=== PATIENT | male | born 1995 | race Hispanic/Latino ===

== ENCOUNTER 2021-01-08 20:24 | Inpatient (IN) | payer SELFPAY ==
--- NOTE | 2021-01-08 21:19 | RAD REPORT ---
EXAM DESCRIPTION: CT - Head Brain Wo Cont - 01/08/2021 9:14 pm CLINICAL HISTORY: HEADACHE, fever, vomiting COMPARISON: No comparisons TECHNIQUE: Axial 5 mm thick images of the head were obtained without IV contrast. All CT scans are performed using dose optimization technique as appropriate and may include automated exposure control or mA/KV adjustment according to patient size. FINDINGS: No intracranial hemorrhage, mass, edema or shift of mid-line structures. No acute infarcti on changes seen. No abnormal extra-axial fluid collections. Ventricles are normal. Mastoid air cells and visualized portions of the paranasal sinuses are clear. No acute bony findings. IMPRESSION: Negative non-contrast CT head examination.
[2021-01-08 21:23] LABS: Absolute Lymphocytes (CBC) 0.3 K/uL (0.7-4.9); Basophils % 0.2 % (0-1.3); Hematocrit 33.7 % (39.6-49.0); Lymphocytes % 3.8 % (15.3-44.8); MPV 7.1 fL (7.6-11.3); RBC Red Blood Cell Count 3.51 M/uL (4.33-5.43)
[2021-01-08 21:28] LABS: Protime INR 1.68
[2021-01-08 21:31] LABS: Urine Blood 2+ (Negative); Urine Glucose Negative (Negative); Urine Protein 2+ (Negative)
[2021-01-08] MEDS ORDERED: NA CHLORIDE 0.9% 2,000 ML ONE (21:33)
[2021-01-08 21:46] LABS: ALT/SGPT 32 U/L (12-78); AST/SGOT 13 U/L (15-37); Albumin 3.7 g/dL (3.4-5.0); Alkaline Phosphatase 78 U/L (45-117); Amylase 51 U/L (25-115); BUN Blood Urea Nitrogen 12 mg/dL (7-18); Bicarbonate 24 mmol/L (21-32); Bilirubin Direct 0.1 mg/dL (0-0.2); Bilirubin Total 0.5 mg/dL (0.2-1.0); Creatine Phosphokinase 101 U/L (39-308); Glucose Level 112 mg/dL (74-106); Lipase 75 U/L (73-393); Protein, Total 8.1 g/dL (6.4-8.2); Sodium Level 137 mmol/L (136-145); Troponin (Emerg Dept Use Only) < 0.02 ng/mL (0.0-0.045)
[2021-01-08 21:50] LABS: CKMB Creatine Kinase MB < 1.0 ng/mL (1.0-3.6)
--- NOTE | 2021-01-08 22:01 | RAD REPORT ---
EXAM DESCRIPTION: RAD - Chest Single View - 01/08/2021 9:19 pm CLINICAL HISTORY: FEVER TECHNIQUE: AP portable chest image was obtained 01/08/2021 9:19 pm . FINDINGS: Lungs are clear. Right-side PICC line is in place with the tip in the mid SVC. Heart and v asculature are normal. No measurable pleural effusion and no pneumothorax. No acute bony abnormality seen. No acute aortic findings suspected. IMPRESSION: No acute cardiopulmonary process.
[2021-01-08 22:06] LABS: Urine Bacteria <20 /HPF (NONE SEEN)
[2021-01-08] MEDS ORDERED: NA CHLORIDE 0.9% 100 ML ONE (22:38)
[2021-01-08] MEDS ORDERED: CEFEPIME 1 GM/VIAL ONE (22:38)
[2021-01-08] MEDS ORDERED: POTASSIUM CL SA 10 MEQ TAB PO ONE (23:28)
[2021-01-09] MEDS ORDERED: NA CHLORIDE 0.9% 1,000 ML ONE ×3 (00:13→05:02)
[2021-01-09] MEDS ORDERED: NA CHLORIDE 0.9% 250 ML ONE (00:27)
[2021-01-09] MEDS ORDERED: VANCOMYCIN 1 GM/VIAL ONE (00:27)
[2021-01-09] MEDS ORDERED: ONDANSETRON 4 MG/2 ML VIAL ONE (00:46)
--- NOTE | 2021-01-09 01:15 | EDPHYS ---
Physician Documentation [facility] Name: Loy Garcia Age: 26 yrs Sex: Male : 1995 Arrival Date: 01/08/2021 Time: 20:34 Bed 15 Private MD: ED Physician Nima Torres HPI: 01/08 20:50 This 26 yrs old Male presents to ER via EMS with complaints of Fever. mh7 20:50 The patient reports fever, that was measured at 102.5 degrees Fahrenheit. Onset: The mh7 symptoms/episode began/occurred today. Modifying factors: there are no obvious modifying factors. Associated signs and symptoms: Pertinent positives: headache, nausea, vomiting, Pertinent negatives: abdominal pain, altered mental status, arthralgias, backache, chest pain, chills, cough, diarrhea, pulling at ears, earache, hemoptysis, myalgias, night sweats, runny nose, sinus congestion, sinus drainage, skin rash, shortness of breath, sore throat, swelling. Severity of symptoms: At their worst the symptoms were moderate today, in the emergency department the symptoms have improved moderately, Pain is currently a 0 / 10. 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 He reports having nausea and vomiting x2 earlier today. He states he later felt some mild pain to the middle of his forehead which has resolved. He denies any chest pain, neck pain, abdominal pain, shortness of breath, diarrhea, dizziness, dysuria, numbness/tingling, weakness. He denies any recent travel or sick contacts.. Historical: - Allergies: 20:39 Coconut; bb - Home Meds: 20:39 None [Active]; bb - PMHx: 20:39 Leukemia; bb - PSHx: 20:39 None; bb - Immunization history:: Adult Immunizations up to date, Client reports receiving the 2nd dose of the Covid vaccine. - Social history:: Smoking status: Patient reports the use of cigarette tobacco products, smokes one pack cigarettes per day. Patient uses alcohol, occasionally. Patient/guardian denies using street drugs. ROS: 20:50 Eyes: Negative for injury, pain, redness, and discharge, ENT: Negative for injury, mh7 pain, and discharge, Neck: Negative for injury, pain, and swelling, Cardiovascular: Negative for chest pain, palpitations, and edema, Respiratory: Negative for shortness of breath, cough, wheezing, and pleuritic chest pain. 20:50 Back: Negative for injury and pain, : Negative for injury, bleeding, discharge, and swelling, MS/Extremity: Negative for injury and deformity, Skin: Negative for injury, rash, and discoloration. 20:50 Psych: Negative for depression, anxiety, suicide ideation, homicidal ideation, and hallucinations, Allergy/Immunology: Negative for hives, rash, and allergies, Endocrine: Negative for neck swelling, polydipsia, polyuria, polyphagia, and marked weight changes, Hematologic/Lymphatic: Negative for swollen nodes, abnormal bleeding, and unusual bruising. 20:50 Abdomen/GI: Negative for diarrhea, constipation, abdominal cramps, abdominal distension, anorexia, dysphagia, hematemesis, black/tarry stool, rectal pain, rectal bleeding, bowel incontinence, flatulence. 20:50 Neuro: Negative for altered mental status, dizziness, gait disturbance, hearing loss, loss of consciousness, numbness, seizure activity, speech changes, syncope, near syncope, tingling, tinnitus, tremor, visual changes, weakness. Exam: 20:50 Constitutional: This is a well developed, well nourished patient who is awake, alert, mh7 and in no acute distress. Head/Face: Normocephalic, atraumatic. Eyes: Pupils equal round and reactive to light, extra-ocular motions intact. Lids and lashes normal. Conjunctiva and sclera are non-icteric and not injected. Cornea within normal limits. Periorbital areas with no swelling, redness, or edema. ENT: Nares patent. No nasal discharge, no septal abnormalities noted. Tympanic membranes are normal and external auditory canals are clear. Oropharynx with no redness, swelling, or masses, exudates, or evidence of obstruction, uvula midline. Mucous membranes moist. Neck: Trachea midline, no thyromegaly or masses palpated, and no cervical lymphadenopathy. Supple, full range of motion without nuchal rigidity, or vertebral point tenderness. No Meningismus. Chest/axilla: Normal chest wall appearance and motion. Nontender with no deformity. No lesions are appreciated. 20:50 Respiratory: Lungs have equal breath sounds bilaterally, clear to auscultation and percussion. No rales, rhonchi or wheezes noted. No increased work of breathing, no retractions or nasal flaring. Abdomen/GI: Soft, non-tender, with normal bowel sounds. No distension or tympany. No guarding or rebound. No evidence of tenderness throughout. Back: No spinal tenderness. No costovertebral tenderness. Full range of motion. Skin: Warm, dry with normal turgor. Normal color with no rashes, no lesions, and no evidence of cellulitis. MS/ Extremity: Pulses equal, no cyanosis. Neurovascular intact. Full, normal range of motion. Neuro: Awake and alert, GCS 15, oriented to person, place, time, and situation. Cranial nerves II-XII grossly intact. Motor strength 5/5 in all extremities. Sensory grossly intact. Cerebellar exam normal. Normal gait. Psych: Awake, alert, with orientation to person, place and time. Behavior, mood, and affect are within normal limits. 20:50 Cardiovascular: Rate: tachycardic, Rhythm: regular, Pulses: no pulse deficits are appreciated, Heart sounds: normal, normal S1and S2, Edema: is not appreciated, JVD: is not appreciated. Vital Signs: 20:39 BP 147 / 86; Pulse 125; Resp 16 S; Temp 102.2(O); Pulse Ox 97% on R/A; Weight 124.74 kg bb (R); Height 5 ft. 9 in. (175.26 cm) (R); 21:38 BP 137 / 84; Pulse 115; Resp 21; Pulse Ox 100% on R/A; bb 22:00 BP 133 / 77; Pulse 115; Resp 24 S; Temp 100.4(O); Pulse Ox 98% on R/A; bb 23:00 BP 145 / 91; Pulse 117; Resp 18 S; Pulse Ox 98% on R/A; bb 01/09 01:39 Pulse 135; Temp 104.1(O); la1 02:00 BP 152 / 86; Pulse 128; Resp 25; Temp 102.9; Pulse Ox 95% on R/A; Pain 0/10; fu 02:55 BP 152 / 86; Pulse 120; Resp 14; Temp 100.2; Pulse Ox 95% on R/A; Pain 0/10; fu 01/08 20:39 Body Mass Index 40.61 (124.74 kg, 175.26 cm) bb MDM: 01:12 Differential diagnosis: viral Infection, bacterial infection, URI, bronchitis, 7 pneumonia UTI. Data reviewed: vital signs, nurses notes, lab test result(s), CBC, electrolytes, Flu: negative urinalysis, EKG, radiologic studies, CT scan, plain films. Data interpreted: Pulse oximetry: on room air is 98 %. Interpretation: normal. Counseling: I had a detailed discussion with the patient and/or guardian regarding: the historical points, exam findings, and any diagnostic results supporting the discharge/admit diagnosis, the presence of at least one elevated blood pressure reading (>120/80) during this emergency department visit, lab results, radiology results, the need for further work-up and treatment in the hospital. Response to treatment: the patient's symptoms have mildly improved after treatment. 01:14 Patient medically screened. [facility] 01/08 20:48 Order name: Amylase, Serum [facility] 01/08 20:48 Order name: Basic Metabolic Panel [facility] 01/08 20:48 Order name: Blood Culture Adult (2) [facility] 01/08 20:48 Order name: CBC with Diff [facility] 01/08 20:48 Order name: CPK [facility] 01/08 20:48 Order name: Ckmb; Complete Time: 22:53 [facility] 01/08 20:48 Order name: LFT's; Complete Time: 22:53 [facility] 01/08 20:48 Order name: Lactate; Complete Time: 22:53 [facility] 01/08 20:48 Order name: Lipase; Complete Time: 22:53 [facility] 01/08 20:48 Order name: Procalcitonin; Complete Time: 22:53 [facility] 01/08 20:48 Order name: Protime (+inr); Complete Time: 21:42 [facility] 01/08 20:48 Order name: Ptt, Activated; Complete Time: 21:42 [facility] 01/08 20:48 Order name: Troponin (emerg Dept Use Only); Complete Time: 22:53 [facility] 01/08 20:48 Order name: Urine Microscopic Only; Complete Time: 22:53 [facility] 01/08 20:48 Order name: Chest Single View XRAY; Complete Time: 22:53 [facility] 01/08 20:48 Order name: Amylase; Complete Time: 22:53 [facility] 01/08 20:48 Order name: Basic Metabolic Panel; Complete Time: 22:53 [facility] 01/08 20:48 Order name: Blood Culture [facility] 01/08 20:48 Order name: CBC with Automated Diff; Complete Time: 21:42 [facility] 01/08 20:48 Order name: Creatine Phosphokinase; Complete Time: 22:53 [facility] 01/08 20:49 Order name: Influenza Screen (a \T\ B); Complete Time: 22:53 [facility] 01/08 20:49 Order name: Rapid Strep; Complete Time: 22:53 [facility] 01/08 20:49 Order name: CT Head Brain wo Cont; Complete Time: 21:20 [facility] 01/08 21:30 Order name: Urine Dipstick-Ancillary; Complete Time: 21:42 [facility] 01/08 21:37 Order name: SARS-COV-2 RT PCR; Complete Time: 22:53 [facility] 01/08 21:45 Order name: Glucose, Ancillary Testing; Complete Time: 22:53 [facility] 01/08 22:13 Order name: Throat Culture [facility] 01/08 23:27 Order name: CT Abd/Pelvis - IV Contrast Only [facility] 01/09 01:32 Order name: Blood Culture*: FROM PICC tn1 01/08 20:48 Order name: Accucheck; Complete Time: 21:35 [facility] 01/08 20:48 Order name: Cardiac monitoring; Complete Time: 21:09 [facility] 01/08 20:48 Order name: EKG - Nurse/Tech; Complete Time: 21:25 [facility] 01/08 20:48 Order name: IV Saline Lock - Large Bore; Complete Time: 21:09 [facility] 01/08 20:48 Order name: Labs collected and sent; Complete Time: 21:08 [facility] 01/08 20:48 Order name: O2 Per Protocol; Complete Time: 21:08 [facility] 01/08 20:48 Order name: O2 Sat Monitoring; Complete Time: 21:08 [facility] 01/08 20:48 Order name: Urine Dipstick-Ancillary (obtain specimen); Complete Time: 21:26 [facility] 01/08 23:27 Order name: CT Chest For PE Angio [facility] 01/09 01:32 Order name: Misc. Order: REMOVE PICC, send to lab for Tip culture; Complete Time: 01:50 la1 Administered Medications: 01/08 21:08 Drug: NS 0.9% (30 ml/kg) 30 ml/kg Route: IV; Rate: bolus; Site: left forearm; bb 01/09 00:48 Follow up: IV Status: Completed infusion; IV Intake: 3000ml ; per Dr Torres adminster bb 3000 mLs 01/08 22:23 Drug: Cefepime 1 grams Route: IVPB; Rate: 200 ml/hr; Infused Over: 30 mins; Site: right ld1 antecubital; 22:56 Follow up: IV Status: Completed infusion; IV Intake: 100ml bb 23:13 Drug: Potassium Chloride 40 mEq Route: PO; bb 01/09 01:11 Follow up: Response: No adverse reaction bb 00:00 Drug: vancoMYCIN 1 grams Route: IVPB; Infused Over: 2 hrs; Site: left forearm; bb 03:09 Follow up: Response: No adverse reaction; IV Status: Completed infusion fu 00:21 CANCELLED (Duplicate Order): Zofran (Ondansetron) 4 mg IVP once; over 2 minutes bb 00:28 Drug: Zofran (Ondansetron) 4 mg Route: IVP; Site: left forearm; bb 02:44 Follow up: Response: No adverse reaction fu 01:44 Drug: Ibuprofen 800 mg Route: PO; la1 03:09 Follow up: Response: Temperature is decreased fu Disposition: 04:46 Co-signature as Attending Physician, Nima Torres MD. [facility] Disposition Summary: 01/09/21 01:14 Hospitalization Ordered Hospitalization Status: Inpatient Admission [facility] Provider: Tino Jordan [facility] Location: Telemetry/MedSurg (Inpatient) [facility] Condition: Stable [facility] Problem: new [facility] Symptoms: have improved [facility] Bed/Room Type: Standard [facility] Room Assignment: 208(01/09/21 02:18) Diagnosis - Sepsis, unspecified organism [facility] - Pneumonia [facility] Forms: - Medication Reconciliation Form [facility] - SBAR form [facility] Signatures: Dispatcher [employer] Roxy De Anda RN RN Mikey Bonilla, COWLMAN-C COWLMAN-Cla1 Kaitlynn Sanders RN RN cg Holmes, Maurice, MD MD [facility] Micki Howard RN RN ld1 Ivan Grullon RN fu Corrections: (The following items were deleted from the chart) 10/29 21:37 20:50 CORONAVIRUS+MRJOSEBRZ ordered. EDMS EDMS 01/09 00:21 00:21 Zofran (Ondansetron) 4 mg IVP once; over 2 minutes ordered. guzman bb 02:18 01:14 7
--- NOTE | 2021-01-09 01:15 | ER ---
Nurse's Notes [facility] Name: Loy Garcia Age: 26 yrs Sex: Male : 1995 Arrival Date: 01/08/2021 Time: 20:34 Bed 15 Private MD: Diagnosis: Sepsis, unspecified organism;Pneumonia Presentation: 01/08 20:34 Chief complaint: EMS states: they were toned out with report of pt with fever on bb arrival temp was 102.5 pt is in remission for several months from leukemia. Coronavirus screen: fever, Client presents with at least one sign or symptom that may indicate coronavirus-19. Standard/surgical mask placed on the client. Ebola Screen: No symptoms or risks identified at this time. Initial Sepsis Screen: Does the patient meet any 2 criteria? Temp <36.0*C (96.8*F)) or > 38.3*C (100.9*F). HR > 90 bpm. Yes Does the patient have a suspected source of infection? Yes: Other: unknown. Risk Assessment: Do you want to hurt yourself or someone else? Patient reports no desire to harm self or others. Onset of symptoms was January 08, 2021. 20:34 Method Of Arrival: EMS: [facility] 20:34 Acuity: LILY 2 bb 20:41 Care prior to arrival: Medication(s) given: Normal saline infusion, Tylenol, 1000 mg, bb IV initiated. 20 GA, in the left forearm, Glucose check: 117. Triage Assessment: 20:39 General: Appears in no apparent distress. Behavior is calm, cooperative. Pain: bb Complains of pain in headache. Neuro: Level of Consciousness is awake, alert, obeys commands, Oriented to person, place, time, situation. Cardiovascular: Capillary refill < 3 seconds. Respiratory: Respiratory effort is even, unlabored, Respiratory pattern is regular. GI: Abdomen is round. Derm: Skin is clammy, Skin is normal, Skin temperature is warm. Musculoskeletal: Circulation, motion, and sensation intact. Historical: - Allergies: 20:39 Coconut; bb - Home Meds: 20:39 None [Active]; bb - PMHx: 20:39 Leukemia; bb - PSHx: 20:39 None; bb - Immunization history:: Adult Immunizations up to date, Client reports receiving the 2nd dose of the Covid vaccine. - Social history:: Smoking status: Patient reports the use of cigarette tobacco products, smokes one pack cigarettes per day. Patient uses alcohol, occasionally. Patient/guardian denies using street drugs. Screenin:42 Abuse screen: Denies threats or abuse. Nutritional screening: No deficits noted. bb Tuberculosis screening: No symptoms or risk factors identified. Fall Risk None identified. Assessment: 20:42 Reassessment: No changes from previously documented assessment. Patient is alert, bb oriented x 3, equal unlabored respirations, skin warm/dry/pink. see triage assessment. 20:55 Reassessment: phlebotomy at bedside for lab draw. bb 22:55 Reassessment: Patient is alert, oriented x 3, equal unlabored respirations, skin bb warm/dry/pink. IV site intact, patent, fluids infusing, awaiting diagnostic results. 23:59 Reassessment: Patient is alert, oriented x 3, equal unlabored respirations, skin bb warm/dry/pink. pt to CT scan via stretcher accompanied by radiology tech. 01/09 01:46 Reassessment: Blood culture sample from PICC line obtained and sent to lab, lab staff milad Gomez notified that sample is from PICC line. 01:49 Reassessment: PICC line to right upper arm removed by Operator, tip sent for fu culture. 03:08 Reassessment: Patient and/or family updated on plan of care and expected duration. Pain fu level reassessed. Patient is alert, oriented x 3, equal unlabored respirations, skin warm/dry/pink. Vital Signs: 01/08 20:39 BP 147 / 86; Pulse 125; Resp 16 S; Temp 102.2(O); Pulse Ox 97% on R/A; Weight 124.74 kg bb (R); Height 5 ft. 9 in. (175.26 cm) (R); 21:38 BP 137 / 84; Pulse 115; Resp 21; Pulse Ox 100% on R/A; bb 22:00 BP 133 / 77; Pulse 115; Resp 24 S; Temp 100.4(O); Pulse Ox 98% on R/A; bb 23:00 BP 145 / 91; Pulse 117; Resp 18 S; Pulse Ox 98% on R/A; bb 01/09 01:39 Pulse 135; Temp 104.1(O); la1 02:00 BP 152 / 86; Pulse 128; Resp 25; Temp 102.9; Pulse Ox 95% on R/A; Pain 0/10; fu 02:55 BP 152 / 86; Pulse 120; Resp 14; Temp 100.2; Pulse Ox 95% on R/A; Pain 0/10; fu 01/08 20:39 Body Mass Index 40.61 (124.74 kg, 175.26 cm) ED Course: 01/08 20:34 Patient arrived in ED. bb 20:36 Triage completed. bb 20:38 Nima Torres MD is Attending Physician. 7 20:39 Arm band placed on Patient placed in an exam room, on a stretcher, on pulse oximetry. bb 20:42 Patient has correct armband on for positive identification. Bed in low position. Call bb light in reach. Side rails up X 1. surveillance monitor on. Pulse ox on. NIBP on. 20:42 Maintain EMS IV. Dressing intact. Site clean \T\ dry. Gauge \T\ site: 20 g L FA. bb 21:14 CT Head Brain wo Cont In Process Unspecified. EDMS 21:19 Chest Single View XRAY In Process Unspecified. EDMS 21:25 Influenza Screen (a \T\ B) Sent. bb 21:25 Rapid Strep Sent. bb 21:26 Urine Microscopic Only Sent. bb 22:54 Roxy Alaniz, RN is Primary Nurse. bb 01/09 00:18 CT Abd/Pelvis - IV Contrast Only In Process Unspecified. EDMS 00:19 CT Chest For PE Angio In Process Unspecified. EDMS 01:14 Tino Jordan MD is Hospitalizing Provider. 7 01:50 Amylase, Serum Sent. fu 01:51 Basic Metabolic Panel Sent. fu 01:51 Blood Culture Adult (2) Sent. fu 01:51 CBC with Diff Sent. fu 01:51 CPK Sent. fu 02:43 No provider procedures requiring assistance completed. fu 03:08 Patient admitted, IV remains in place. fu Administered Medications: 01/08 21:08 Drug: NS 0.9% (30 ml/kg) 30 ml/kg Route: IV; Rate: bolus; Site: left forearm; bb 01/09 00:48 Follow up: IV Status: Completed infusion; IV Intake: 3000ml ; per Dr Torres adminster bb 3000 mLs 01/08 22:23 Drug: Cefepime 1 grams Route: IVPB; Rate: 200 ml/hr; Infused Over: 30 mins; Site: right ld1 antecubital; 22:56 Follow up: IV Status: Completed infusion; IV Intake: 100ml bb 23:13 Drug: Potassium Chloride 40 mEq Route: PO; bb 01/09 01:11 Follow up: Response: No adverse reaction bb 00:00 Drug: vancoMYCIN 1 grams Route: IVPB; Infused Over: 2 hrs; Site: left forearm; bb 03:09 Follow up: Response: No adverse reaction; IV Status: Completed infusion fu 00:21 CANCELLED (Duplicate Order): Zofran (Ondansetron) 4 mg IVP once; over 2 minutes bb 00:28 Drug: Zofran (Ondansetron) 4 mg Route: IVP; Site: left forearm; bb 02:44 Follow up: Response: No adverse reaction fu 01:44 Drug: Ibuprofen 800 mg Route: PO; la1 03:09 Follow up: Response: Temperature is decreased fu Intake: 01/08 22:56 IV: 100ml; Total: 100ml. bb 01/09 00:48 IV: 3000ml; Total: 3100ml. Outcome: 01:14 Decision to Hospitalize by Provider. [facility] 03:07 Admitted to Med/surg accompanied by nurse, via wheelchair, room 208, Report called to milad Lindsey RN 03:07 Condition: stable 03:07 Instructed on the need for admit, Demonstrated understanding of instructions. 03:16 Patient left the ED. Signatures: Dispatcher [employer] EDUT Roxy Alaniz RN Mikey Don, LIDAR SCIENTIST-C LIDAR SCIENTIST-Cla1 Ivan Grullon RN RN fu Holmes, Maurice, MD MD 7 Micki Howard RN RN ld1 Corrections: (The following items were deleted from the chart) 01/08 21:37 21:25 CORONAVIRUS+ drawn and sent. guzman EDMS 01/09 00:03 01/08 22:54 BP 133 / 77; Pulse 115bpm; Resp 24bpm; Spontaneous; Pulse Ox 98% RA; Temp bb 100.4F Oral; bb
--- NOTE | 2021-01-09 01:50 | P.HP ---
Certification for Inpatient Patient admitted to: Inpatient With expected LOS: >2 Midnights Patient will require the following post-hospital care: None Practitioner: I am a practitioner with admitting privileges, knowledge of patient current condition, hospital course, and medical plan of care. Services: Services provided to patient in accordance with Admission requirements found in Title 42 Section 412.3 of the Code of Federal Regulations Patient History Date of Service: 01/09/21 Primary Care Provider: None Reason for admission: Sepsis History of Present Illness: 26-year-old male with history of leukemia now in remission for last 8 months presents emergency department for fever. Patient noted to have PICC line to right upper extremity reports that has been in there ever since he was treated with chemotherapy for his leukemia and he never had it removed as he thought he needs to go to [facility] to do so. Patient noted to have no formal dressing to pick line, covered with a T-shirt. Patient reports he has been flushing at home daily. Patient was evaluated in the emergency department labs are significant for white blood cell count 8.3 hemoglobin 11.7 hematocrit 33.7 platelet 115 potassium 3.0 glucose 112 procalcitonin 0.92 lactic acid 0.5 T-max 104.1. CT chest abdomen pelvis with contrast revealed possible left lower lobe pneumonia also suspect central line infection. Blood cultures were obtained including 1 set from PICC line, PICC line was then removed and catheter tip was sent to the lab for culture, will admit for sepsis. - Past Medical/Surgical History -: Leukemiain remission -: None Psychosocial/ Personal History: Lives at home with his family - Family History Family History: Reviewed- Non-Contributory - Social History Smoking Status: Current every day smoker Counseled patient to stop smoking for: less than 10 minutes Smoking therapy provided: No (Patient declined) Alcohol use: Yes CD- Drugs: No Caffeine use: Yes Place of Residence: Home Review of Systems 10-point ROS is otherwise unremarkable General: Fever, Chills, Weakness, Malaise Physical Examination - Physical Exam General: Alert, In no apparent distress, Oriented x3 HEENT: Atraumatic, PERRLA, Mucous membr. moist/pink, EOMI, Sclerae nonicteric Neck: Supple, 2+ carotid pulse no bruit, No LAD, Without JVD or thyroid abnormality Respiratory: Clear to auscultation bilaterally, Normal air movement Cardiovascular: Regular rate/rhythm, Normal S1 S2 Gastrointestinal: Normal bowel sounds, No tenderness Musculoskeletal: No tenderness Integumentary: No rashes Neurological: Normal speech, Normal strength at 5/5 x4 extr, Normal tone, Normal affect - Studies Laboratory Data (last 24 hrs) 01/08/21 21:07: PT 19.4 H, INR 1.68, APTT 34.5 01/08/21 21:07: WBC 8.30, Hgb 11.7 L, Hct 33.7 L, Plt Count 115 L 01/08/21 21:07: Sodium 137, Potassium 3.0 L, BUN 12, Creatinine 0.91, Glucose 112 H, Total Bilirubin 0.5, AST 13 L, ALT 32, Alkaline Phosphatase 78, Amylase 51, Lipase 75 Microbiology Data (last 24 hrs): 01/08/21 21:24 Nasopharnyx Influenza Type A Antigen Screen - Final 01/08/21 21:24 Nasopharnyx Influenza Type B Antigen Screen - Final 01/08/21 21:24 Throat Group A Streptococcus Rapid Screen - Final Assessment and Plan - Plan Assessment: Sepsis without severe sepsis or septic shock likely secondary to CVC infection with possible left lower lobe pneumonia Hypokalemia Plan: Sepsis without severe sepsis or septic shock likely secondary to CVC infection with possible left lower lobe pneumonia: 2 sets of blood cultures obtained peripherally, 1 set obtained from PICC line, PICC line discontinued and catheter tip sent to lab for culture. Patient on broad-spectrum antibiotics with vancomycin/cefepime, infectious disease consulted. Echocardiogram ordered to rule out endocarditis. Continue broad-spectrum antibiotics, IV fluids. Hypokalemia: Potassium protocol in place. DVT PPX: Lovenox full Code status: Discharge Plan: Home Plan to discharge in: Greater than 2 days - Advance Directives Does patient have a Living Will: No Does patient have a Durable POA for Healthcare: No - Code Status/Comfort Care Code Status Assessed: Yes (Full code) Critical Care: No Time Spent Managing Pts Care (In Minutes): 55
[2021-01-09] MEDS ORDERED: IBUPROFEN 400 MG TAB ONE (02:05)
[2021-01-09 03:31] VITALS: BMI 33.2
[2021-01-09] MEDS ORDERED: ONDANSETRON 4 MG/2 ML VIAL IV PRN (03:35)
[2021-01-09] MEDS: NA CHLORIDE 0.9% 1,000 ML IV SCH ×3 (03:35→20:40)
[2021-01-09] MEDS ORDERED: VANCOMYCIN/NS 1 gm 1 GM/250 ML BAG IVPB SCH (03:35)
[2021-01-09 03:47] VITALS: O2SAT 100
[2021-01-09] MEDS ORDERED: VANCOMYCIN 0.75 GM in NA CHLORIDE 0.9% 150 ML IVPB ONE (04:30)
[2021-01-09 05:50] LABS: Absolute Lymphocytes (CBC) 0.3 K/uL (0.7-4.9); Basophils % 0.1 % (0-1.3); Lymphocytes % 5.2 % (15.3-44.8)
[2021-01-09 06:15] LABS: ALT/SGPT 35 U/L (12-78); AST/SGOT 20 U/L (15-37); Albumin 3.4 g/dL (3.4-5.0); Alkaline Phosphatase 69 U/L (45-117); BUN Blood Urea Nitrogen 9 mg/dL (7-18); Bicarbonate 24 mmol/L (21-32); Bilirubin Total 0.5 mg/dL (0.2-1.0); Glucose Level 105 mg/dL (74-106); Magnesium 1.7 mg/dL (1.8-2.4); Potassium 3.5 mmol/L (3.5-5.1); Protein, Total 7.5 g/dL (6.4-8.2); Sodium Level 138 mmol/L (136-145); Thyroid Stimulating Hormone 0.555 uIU/mL (0.360-3.740)
[2021-01-09] MEDS ORDERED: MAGNESIUM SULFATE 1 gm IVPB 1 GM/100 ML BAG IV ONE (09:00)
[2021-01-09] MEDS ORDERED: CEFEPIME 1 GM/VIAL IV SCH (09:00)
[2021-01-09 09:17] LABS: Blood Morphology Comment NOT SEEN (NOT SEEN); Platelet Estimate ADEQ
[2021-01-09] MEDS: CEFEPIME 1 GM/100 ML BAG IV SCH ×2 (09:46→20:38)
[2021-01-09] MEDS: ENOXAPARIN 40 MG/0.4 ML SQ SCH (09:46)
--- NOTE | 2021-01-09 12:14 | P.INFCA ---
Sepsis Focused Assessment - Focused Assessment Complete? Sepsis Focused Assessment Completed?: Yes - Sepsis Screen Result Severe Sepsis: Negative Septic Shock: Negative - Evaluation Current stage of sepsis: Resolved - Vital Signs Reviewed: Yes Temperature: 99.6 F Heart rate: 132 Blood Pressure: 141/79 Respiratory Rate: 21 O2 Sat by Pulse Oximetry: 96 - Examination Date exam was performed: 01/09/21 Time exam was performed: 06:45 Heart: Tachycardia Lungs: Diminished air movement Peripheral pulses: 3+ Normal Peripheral pulse location: Radial, Posterior tibial Capillary refill: <2 Seconds Skin examination: Normal turgor
[2021-01-09] MEDS: VANCOMYCIN 1.75 GM in NA CHLORIDE 0.9% 500 ML IVPB SCH (16:30)
[2021-01-09] MEDS: ACETAMINOPHEN 500 MG TAB PO PRN (17:03)
--- NOTE | 2021-01-09 18:22 | RAD REPORT ---
EXAM DESCRIPTION: CT - Abdomen Pelvis W Contrast - 01/09/2021 6:25 am CLINICAL HISTORY: The patient is 26 years old and is Male; Fever;Nausea / vomiting TECHNIQUE: Axial computed tomographic angiography images of the chest and axial computed tomography images of the abdomen and pelvis with intravenous contrast. This CT exam was performed using one or more of the following dose reduction techniques: automated exposure control, adjustment of the mA and/or kV according to patient size, and/or use of iterative reconstruction technique. Delayed imaging was performed. MIP reconstructed images were created and reviewed. Oblique reformatted images were created and reviewed. DLP: 2263 mGy*cm COMPARISON: None. FINDINGS: CHEST: AORTA: No acute findings. No aortic aneurysm. No dissection. PULMONARY ARTERIES: Limited evaluation due to poor bolus timing. No central pulmonary embolism. GREAT VESSELS OF AORTIC ARCH: No acute findings. No dissection. No arterial occlusion or signif icant stenosis. LUNGS: Left lower lobe opacity measuring approximately 1.7 cm. Right lower lobe nodule measuring 4 mm (series 4 2, image 70). Mild adjacent interlobular septal thickening. PLEURAL SPACE: Unremarkable. No significant effusion. No pneumothorax. HEART: Mild cardiomegaly. No significant pericardial effusion. MEDIASTINUM: Small hiatal hernia. ABDOMEN: LIVER: Unremarkable. No mass. GALLBLADDER AND BILE DUCTS: Unremarkable. No calcified stones. No ductal dilation. PANCREAS: Unremarkable. No ductal dilation. No mass. SPLEEN: Unremarkable. No splenomegaly. ADRENALS: Unremarkable. No mass. KIDNEYS AND URETERS: Bilateral nonspecific perinephric stranding. No hydronephrosis. No solid mass. STOMACH AND BOWEL: Unremarkable. No obstruction. No mucosal thickening. PELVIS: APPENDIX: The appendix is seen and is within normal limits. BLADDER: Unremarkable. No mass. REPRODUCTIVE: Unremarkable as visualized. CHEST, ABDOMEN and PELVIS: INTRAPERITONEAL SPACE: Unremarkable. No significant fluid collection. No free air. BONES/JOINTS: Straightening of the thoracolumbar curvature. No acute fracture. No dislocation. SOFT TISSUES: Fat-containing umbilical hernia. LYMPH NODES: Unremarkable. No enlarged lymph nodes. IMPRESSION: 1. Limited evaluation due to poor bolus timing. No central pulmonary embolism. 2. Left lower lobe opacity measuring approximately 1.7 cm. Finding concerning for infectious proc ess. 3. Right lower lobe nodule measuring 4 mm (series 402, image 70). 4. No acute abdominal or pelvic abnormality. 5. Mild cardiomegaly. Electronically signed by: Rupert Barahona DO 01/09/2021 12:43 AM CDT Due to temporary technical issues with the PACS/Fluency reporting system, reports are being signed by the in house radiologists without review as a courtesy to insure prompt reporting. The interpreting radiologist is fully responsible for the content of the report.
--- NOTE | 2021-01-09 18:25 | RAD REPORT ---
EXAM DESCRIPTION: CT - Chest For Pe Angio - 01/09/2021 6:25 am CLINICAL HISTORY: The patient is 26 years old and is Male; Fever;Nausea / vomiting TECHNIQUE: Axial computed tomographic angiography images of the chest and axial computed tomography images of the abdomen and pelvis with intravenous contrast. This CT exam was performed using one or more of the following dose reduction techniques: automated exposure control, adjustment of the mA and/or kV according to patient size, and/or use of iterative reconstruction TECHNIQUE: Delayed imaging was performed. MIP reconstructed images were created and reviewed. Oblique reformatted images were created and reviewed. DLP: 2263 mGy*cm COMPARISON: None. FINDINGS: CHEST: AORTA: No acute findings. No aortic aneurysm. No dissection. PULMONARY ARTERIES: Limited evaluation due to poor bolus timing. No central pulmonary embolism. GREAT VESSELS OF AORTIC ARCH: No acute findings. No dissection. No arterial occlusion or signif icant stenosis. LUNGS: Left lower lobe opacity measuring approximately 1.7 cm. Right lower lobe nodule measuring 4 mm (series 4 2, image 70). Mild adjacent interlobular septal thickening. PLEURAL SPACE: Unremarkable. No significant effusion. No pneumothorax. HEART: Mild cardiomegaly. No significant pericardial effusion. MEDIASTINUM: Small hiatal hernia. ABDOMEN: LIVER: Unremarkable. No mass. GALLBLADDER AND BILE DUCTS: Unremarkable. No calcified stones. No ductal dilation. PANCREAS: Unremarkable. No ductal dilation. No mass. SPLEEN: Unremarkable. No splenomegaly. ADRENALS: Unremarkable. No mass. KIDNEYS AND URETERS: Bilateral nonspecific perinephric stranding. No hydronephrosis. No solid mass. STOMACH AND BOWEL: Unremarkable. No obstruction. No mucosal thickening. PELVIS: APPENDIX: The appendix is seen and is within normal limits. BLADDER: Unremarkable. No mass. REPRODUCTIVE: Unremarkable as visualized. CHEST, ABDOMEN and PELVIS: INTRAPERITONEAL SPACE: Unremarkable. No significant fluid collection. No free air. BONES/JOINTS: Straightening of the thoracolumbar curvature. No acute fracture. No dislocation. SOFT TISSUES: Fat-containing umbilical hernia. LYMPH NODES: Unremarkable. No enlarged lymph nodes. IMPRESSION: 1. Limited evaluation due to poor bolus timing. No central pulmonary embolism. 2. Left lower lobe opacity measuring approximately 1.7 cm. Finding concerning for infectious proc ess. 3. Right lower lobe nodule measuring 4 mm (series 402, image 70). 4. No acute abdominal or pelvic abnormality. 5. Mild cardiomegaly. Electronically signed by: Rupert Barahona DO 01/09/2021 12:43 AM CDT Due to temporary technical issues with the PACS/Fluency reporting system, reports are being signed by the in house radiologists without review as a courtesy to insure prompt reporting. The interpreting radiologist is fully responsible for the content of the report.
[2021-01-10] MEDS: ACETAMINOPHEN 500 MG TAB PO PRN (00:41)
[2021-01-10] MEDS: VANCOMYCIN 1.75 GM in NA CHLORIDE 0.9% 500 ML IVPB SCH ×3 (04:31→17:00)
--- NOTE | 2021-01-10 06:07 | P.PN ---
Date of Service: 01/10/21 Subjective: No acute events overnight. Patient reports feeling slightly better. Fever curve seems to be improving. Tachycardia improving along with temperature No new complaints, denies cough, shortness of breath, chest pain Blood cultures positive yesterday ROS: 10 point ROS as noted above, otherwise negative Physical exam GEN: Alert, oriented, NAD, appears fatigued HEENT: Normal conjunctiva, sclera anicteric CV: Regular rate and rhythm, no edema Pulm: Nonlabored respiration on room air ABD: Soft, nontender, nondistended MSK: No joint tenderness Integumentary: No rashes Neuro: Normal speech, normal affect Problem List: Sepsis without severe sepsis or septic shock likely secondary to CVC infection with possible left lower lobe pneumonia Hypokalemia Blood cultures obtained peripherally and from PICC line/catheter tip was sent for culture, positive for gram-positive cocci. Continue broad-spectrum antibiotics until further culture results Infectious disease consulted Echocardiogram to be done tomorrow to rule out possible endocarditis Repeat blood cultures this a.m., until negative Tolerating p.o., DC IV fluids Patient without cough, no shortness of breath; suspect source of infection is from his PICC line VTE: Lovenox Code: Full Dispo: Anticipate discharge home, likely 2-3 days Positive blood cultures, need to repeat until negative. Will likely need another PICC line and IV antibiotics Possibility of needing a ROBERTO Time Spent Managing Pts Care (In Minutes): 35
[2021-01-10 06:11] LABS: Absolute Lymphocytes (CBC) 0.5 K/uL (0.7-4.9); Basophils % 0.1 % (0-1.3); Hematocrit 32.3 % (39.6-49.0); Lymphocytes % 12.1 % (15.3-44.8); MPV 7.4 fL (7.6-11.3); RBC Red Blood Cell Count 3.32 M/uL (4.33-5.43)
[2021-01-10 06:32] LABS: ALT/SGPT 38 U/L (12-78); AST/SGOT 20 U/L (15-37); Albumin 3.1 g/dL (3.4-5.0); Alkaline Phosphatase 67 U/L (45-117); BUN Blood Urea Nitrogen 10 mg/dL (7-18); Bicarbonate 24 mmol/L (21-32); Bilirubin Total 0.4 mg/dL (0.2-1.0); Glucose Level 91 mg/dL (74-106); Magnesium 2.1 mg/dL (1.8-2.4); Potassium 3.4 mmol/L (3.5-5.1); Protein, Total 7.4 g/dL (6.4-8.2); Sodium Level 139 mmol/L (136-145)
[2021-01-10] MEDS ORDERED: POTASSIUM CL SA 10 MEQ TAB PO ONE (09:00)
[2021-01-10] MEDS: CEFEPIME 1 GM/100 ML BAG IV SCH ×2 (10:01→20:34)
[2021-01-10] MEDS: ENOXAPARIN 40 MG/0.4 ML SQ SCH (10:02)
[2021-01-10] MEDS: NA CHLORIDE 0.9% 1,000 ML IV SCH (10:03)
[2021-01-10 15:26] LABS: Potassium 3.6 mmol/L (3.5-5.1)
[2021-01-11] MEDS ORDERED: lisinopriL 10 MG TAB PO ONE (00:46)
[2021-01-11] MEDS: VANCOMYCIN 1.75 GM in NA CHLORIDE 0.9% 500 ML IVPB SCH ×2 (01:46→09:58)
[2021-01-11 04:29] LABS: Absolute Lymphocytes (CBC) 0.6 K/uL (0.7-4.9); Basophils % 0.2 % (0-1.3); Hematocrit 31.2 % (39.6-49.0); MPV 7.2 fL (7.6-11.3); RBC Red Blood Cell Count 3.27 M/uL (4.33-5.43)
[2021-01-11 04:52] LABS: ALT/SGPT 47 U/L (12-78); AST/SGOT 25 U/L (15-37); Albumin 3.3 g/dL (3.4-5.0); Alkaline Phosphatase 67 U/L (45-117); BUN Blood Urea Nitrogen 11 mg/dL (7-18); Bicarbonate 26 mmol/L (21-32); Bilirubin Total 0.5 mg/dL (0.2-1.0); Glucose Level 90 mg/dL (74-106); Magnesium 2.2 mg/dL (1.8-2.4); Potassium 3.4 mmol/L (3.5-5.1); Protein, Total 7.6 g/dL (6.4-8.2); Sodium Level 140 mmol/L (136-145)
--- NOTE | 2021-01-11 06:10 | P.PN ---
Date of Service: 01/11/21 Subjective: No acute events, feeling better today Afebrile, cultures pending No new complaints ROS: 10 point ROS as noted above, otherwise negative Physical exam GEN: Alert, oriented, NAD HEENT: Normal conjunctiva, sclera anicteric CV: Regular rate and rhythm, no edema Pulm: Nonlabored respiration on room air ABD: Soft, nontender, nondistended Integumentary: No rashes Neuro: Normal speech, normal affect Problem List: Sepsis without severe sepsis or septic shock likely secondary to CVC infection with possible left lower lobe pneumonia Hypokalemia Blood cultures obtained peripherally and from PICC line/catheter tip was sent for culture, positive for gram-positive cocci. Continue broad-spectrum antibiotics until further culture results Infectious disease consulted Echocardiogram to be done today to rule out possible endocarditis Repeat blood cultures, until negative Tolerating p.o., DC'd IV fluids Patient without cough, no shortness of breath; suspect source of infection is from his PICC line VTE: Lovenox Code: Full Dispo: Anticipate discharge home, likely 2-3 days Positive blood cultures, need to repeat until negative. Will likely need another PICC line and IV antibiotics Possibility of needing a ROBERTO Time Spent Managing Pts Care (In Minutes): 35
[2021-01-11] MEDS: CEFEPIME 1 GM/100 ML BAG IV SCH (09:58)
[2021-01-11] MEDS: ENOXAPARIN 40 MG/0.4 ML SQ SCH (09:59)
[2021-01-11] MEDS: KCL 20 MEQ/100 mL IVPB 20 MEQ/100 ML BAG IV SCH ×2 (09:59→15:53)
--- NOTE | 2021-01-11 11:14 | P.CNS ---
Date of Consult: 01/11/21 Primary Care Provider: None Chief Complaint: Sepsis History of Present Illness: The patient is a 26-year-old male with a past medical history of leukemia now in remission for the last 8 months who presented to the emergency department due to fever and nausea. Patient states that he took his temperature at home and was recorded at 107.0 F. in the ED patient had a T-max of 104.1 F. in the emergency department patient was noted have the PICC line to his right upper extremity which was covered with a T-shirt. Patient states that he had the PICC line placed several months ago when he was treated with chemotherapy for his leukemia. Patient did not have the PICC line removed after completion of chemotherapy, unknown why. In the emergent department labs were significant for WBC of 8.3, hemoglobin 11.4, hematocrit 33.4, procalcitonin 0.92, lactic acid 0.5. To sets of blood cultures were obtained, 1 from PICC line. PICC line was subsequently removed with catheter tip sent to lab for culture. Patient was empirically placed on vancomycin and cefepime. Blood cultures growing methicillin-susceptible Staphylococcus aureus, catheter tip growing Staphylococcus aureus and Serratia. Antibiotics de escalated to IV cefazolin an oral Levaquin. Patient currently denies nausea/vomiting/diarrhea/shortness of breathe/chest pain. Allergies coconut Allergy (Severe, Verified 01/09/21 03:32) Hives Home Medications: NK [No Home Meds] 01/09/21 - Past Medical/Surgical History Diabetic: No -: Leukemiain remission -: None Psychosocial/ Personal History: Lives at home with his family - Social History Smoking Status: Current every day smoker Alcohol use: No CD- Drugs: No Caffeine use: Yes Place of Residence: Home Review of Systems 10-point ROS is otherwise unremarkable Physical Examination Temp Pulse Resp BP Pulse Ox 97.2 F 65 17 153/92 H 98 01/11/21 08:00 01/11/21 08:00 01/11/21 08:00 01/11/21 08:00 01/11/21 08:00 General: Alert, In no apparent distress, Oriented x3, Obese HEENT: Atraumatic, Normocephalic Neck: Supple, 2+ carotid pulse no bruit Respiratory: Clear to auscultation bilaterally, Normal air movement Cardiovascular: No edema, Normal pulses, Regular rate/rhythm Capillary refill: <2 Seconds Gastrointestinal: Normal bowel sounds, Soft and benign Musculoskeletal: No clubbing, No swelling, No contractures Integumentary: No rashes, No breakdown, No significant lesion Conclusions/Impression: Antibiotics: Cephazolin Start: 01/11 Indication: Methicillin-susceptible bacteremia Levaquin Start: 01/11 Indication: Catheter tip growing Serratia Assessment/plan Sepsis secondary to infected right PICC line Infected line removed on 01/09. Blood cultures obtained on 01/08 growing methicillin-susceptible Staphylococcus aureus. Catheter tip growing methicillin-susceptible Staphylococcus aureus and Serratia. Antibiotics adjusted based on the susceptibility panel, IV cefazolin and oral Levaquin started. Repeat blood cultures taken on 01/10 show no growth @24hr. Patient will need 2 weeks of IV cefazolin following a negative blood culture report and 1 week of oral Levaquin. Transthoracic echocardiogram pending. 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 Recommend continuing to monitor. Sepsis likely contributing to her pancytopenia. -medical management per primary team -continue to monitor CBC and BMP -continue to monitor for signs of infection Plan of care discussed with Dr. Christopher Thank you for consultation.
[2021-01-11] MEDS: CEFAZOLIN 2 GM in NA CHLORIDE 0.9% 100 ML IVPB SCH (17:00)
[2021-01-12] MEDS: CEFAZOLIN 2 GM in NA CHLORIDE 0.9% 100 ML IVPB SCH ×3 (00:09→17:00)
[2021-01-12 05:43] LABS: Absolute Lymphocytes (CBC) 0.6 K/uL (0.7-4.9); Basophils % 0.2 % (0-1.3); Hematocrit 31.9 % (39.6-49.0); Lymphocytes % 18.2 % (15.3-44.8); MPV 7.8 fL (7.6-11.3); RBC Red Blood Cell Count 3.33 M/uL (4.33-5.43)
[2021-01-12 06:07] LABS: ALT/SGPT 47 U/L (12-78); AST/SGOT 20 U/L (15-37); Albumin 3.2 g/dL (3.4-5.0); Alkaline Phosphatase 72 U/L (45-117); BUN Blood Urea Nitrogen 12 mg/dL (7-18); Bicarbonate 27 mmol/L (21-32); Bilirubin Total 0.4 mg/dL (0.2-1.0); Glucose Level 90 mg/dL (74-106); Magnesium 2.1 mg/dL (1.8-2.4); Potassium 3.5 mmol/L (3.5-5.1); Protein, Total 7.7 g/dL (6.4-8.2); Sodium Level 140 mmol/L (136-145)
[2021-01-12] MEDS ORDERED: lisinopriL 10 MG TAB PO SCH (09:00)
[2021-01-12] MEDS: ENOXAPARIN 40 MG/0.4 ML SQ SCH (09:15)
--- NOTE | 2021-01-12 10:48 | P.PN ---
Subjective Date of Service: 01/12/21 Primary Care Provider: None Chief Complaint: Sepsis Patient seen and examined at bedside, repeat blood cultures obtained on 01/10 still lowering gram-positive bacteria. Antibiotics transitioned yesterday. Review of Systems 10-point ROS is otherwise unremarkable Physical Examination - Vital Signs Temperature: 97 F Blood Pressure: 154/89 Pulse: 74 Respirations: 14 Pulse Ox (%): 99 - Studies Laboratory Last Values WBC 8.30 K/uL (4.3-10.9) 01/08/21 21:07 RBC 3.51 M/uL (4.33-5.43) L 01/08/21 21:07 Hgb 11.7 g/dL (13.6-17.9) L 01/08/21 21:07 Hct 33.7 % (39.6-49.0) L 01/08/21 21:07 MCV 96.0 fL (80-100) 01/08/21 21:07 MCH 33.2 pg (27.0-35.0) 01/08/21 21:07 MCHC 34.6 g/dL (32.0-36.0) 01/08/21 21:07 RDW 17.0 % (12.1-15.2) H 01/08/21 21:07 Plt Count 115 K/uL (152-406) L 01/08/21 21:07 MPV 7.1 fL (7.6-11.3) L 01/08/21 21:07 Neutrophils % 90.6 % (41.7-73.7) H 01/08/21 21:07 Lymphocytes % 3.8 % (15.3-44.8) L 01/08/21 21:07 Monocytes % 5.1 % (3.3-12.3) 01/08/21 21:07 Eosinophils % 0.3 % (0-4.4) 01/08/21 21:07 Basophils % 0.2 % (0-1.3) 01/08/21 21:07 Absolute Neutrophils 7.5 K/uL (1.8-8.0) 01/08/21 21:07 Absolute Lymphocytes 0.3 K/uL (0.7-4.9) L 01/08/21 21:07 Absolute Monocytes 0.4 K/uL (0.1-1.3) 10/29/21 21:07 Absolute Eosinophils 0.0 K/uL (0-0.5) 01/08/21 21:07 Absolute Basophils 0.0 K/uL (0-0.5) 01/08/21 21:07 PT 19.4 SECONDS (9.5-12.5) H 01/08/21 21:07 INR 1.68 01/08/21 21:07 APTT 34.5 SECONDS (24.3-36.9) 01/08/21 21:07 Sodium 137 mmol/L (136-145) 01/08/21 21:07 Potassium 3.0 mmol/L (3.5-5.1) L 01/08/21 21:07 Chloride 104 mmol/L (98-107) 01/08/21 21:07 Carbon Dioxide 24 mmol/L (21-32) 01/08/21 21:07 BUN 12 mg/dL (7-18) 01/08/21 21:07 Creatinine 0.91 mg/dL (0.55-1.3) 01/08/21 21:07 Estimated GFR > 90 mL/min (=/>90) 01/08/21 21:07 Glucose 112 mg/dL (74-106) H 01/08/21 21:07 POC Glucose 104 mg/dL (65-120) 01/08/21 21:34 Lactic Acid 0.5 mmol/L (0.4-2.0) 01/08/21 21:07 Calcium 8.6 mg/dL (8.5-10.1) 01/08/21 21:07 Total Bilirubin 0.5 mg/dL (0.2-1.0) 01/08/21 21:07 Direct Bilirubin 0.1 mg/dL (0-0.2) 01/08/21 21:07 AST 13 U/L (15-37) L 01/08/21 21:07 ALT 32 U/L (12-78) 01/08/21 21:07 Alkaline Phosphatase 78 U/L (45-117) 01/08/21 21:07 Creatine Kinase 101 U/L (39-308) 01/08/21 21:07 CK-MB (CK-2) < 1.0 ng/mL (1.0-3.6) L 01/08/21 21:07 Rapid Troponin I < 0.02 ng/mL (0.0-0.045) 01/08/21 21:07 Serum Total Protein 8.1 g/dL (6.4-8.2) 01/08/21 21:07 Albumin 3.7 g/dL (3.4-5.0) 01/08/21 21:07 Globulin 4.4 g/dL (2.3-3.5) H 01/08/21 21:07 Albumin/Globulin Ratio 0.8 (1.1-1.8) L 01/08/21 21:07 Amylase 51 U/L (25-115) 01/08/21 21:07 Lipase 75 U/L (73-393) 01/08/21 21:07 Procalcitonin 0.92 ng/mL (<0.050) H 01/08/21 21:07 Urine pH 7.0 (5.0-7.0) 01/08/21 21:28 Ur Specific [place] 1.020 (1.005-1.030) 01/08/21 21:28 Glucose (UA)(Auto) Negative (Negative) 01/08/21 21:28 Urine Ketones Negative (Negative) 01/08/21 21:28 Urine Blood 2+ (Negative) H 01/08/21 21:28 Urine Nitrite Negative (Negative) 01/08/21 21:28 Ur Leukocyte Esterase Negative (Negative) 01/08/21 21:28 Urine RBC 5-10 /HPF (NONE SEEN) H 01/08/21 21:24 Urine WBC <5 /HPF (<5) 01/08/21 21:24 Ur Squamous Epith Cells <5 /HPF (NONE SEEN) 01/08/21 21:24 Urine Bacteria <20 /HPF (NONE SEEN) 01/08/21 21:24 Urine Culture Reflexed Not needed 01/08/21 21:24 Urine Total Protein 2+ (Negative) H 01/08/21 21:28 SARS-CoV-2 Rap RNA(RT-PCR) Negative (NEGATIVE) 01/08/21 21:24 Microbiology Data (last 24 hrs): 01/09/21 01:40 Catheter Tip - Other Culture & Sensitivity - Final Serratia Marcescens Staph Aureus 01/08/21 21:24 Throat Culture & Sensitivity - Final NORMAL UPPER RESPIRATORY ELIAS GROWN. 01/08/21 21:01 Blood - Blood Aerobic Blood Culture - Final Staph Aureus 01/08/21 21:01 Blood - Blood Blood Culture Gram Stain - Final 01/08/21 21:01 Blood - Blood Anaerobic Blood Culture - Final 01/08/21 21:07 Blood - Blood Aerobic Blood Culture - Final Staph Aureus 01/08/21 21:07 Blood - Blood Blood Culture Gram Stain - Final 01/08/21 21:07 Blood - Blood Anaerobic Blood Culture - Final 01/09/21 01:39 Blood - Blood Aerobic Blood Culture - Final Staph Aureus 01/09/21 01:39 Blood - Blood Blood Culture Gram Stain - Final 01/09/21 01:39 Blood - Blood Anaerobic Blood Culture - Final Staph Aureus 01/09/21 01:39 Blood - Blood Gram Stain - Final Assessment And Plan - Plan Physical exam: General: Alert, In no apparent distress, Oriented x3, Obese HEENT: Atraumatic, Normocephalic Neck: Supple, 2+ carotid pulse no bruit Respiratory: Clear to auscultation bilaterally, Normal air movement Cardiovascular: No edema, Normal pulses, Regular rate/rhythm Capillary refill: <2 Seconds Gastrointestinal: Normal bowel sounds, Soft and benign Musculoskeletal: No clubbing, No swelling, No contractures Integumentary: No rashes, No breakdown, No significant lesion Conclusions/Impression: Antibiotics: Cephazolin Start: 01/11 Indication: Methicillin-susceptible bacteremia Levaquin Start: 01/11 Indication: Catheter tip growing Serratia Assessment/plan Sepsis secondary to infected right PICC line Infected line removed on 01/09. Blood cultures obtained on 01/08 growing methicillin-susceptible Staphylococcus aureus. Catheter tip growing methicillin-susceptible Staphylococcus aureus and Serratia. Antibiotics adj usted based on the susceptibility panel, IV cefazolin and oral Levaquin started. Repeat blood cultures taken on 01/10 growing gram-positive cocci. Additional repeat ordered on 01/12. Patient will need 2 weeks of IV cefazolin following a negative blood culture report and 1 week of oral Levaquin. Transthoracic echocardiogram pending. Due to low diagnostic threshold recommend obtaining a transesophageal echocardiogram Left lower lobe [place]/right lower lobe nodule Left lower lobe lipase 80 concerning for pneumonia however patient is asymptomatic at this time. Of note patient has an extensive past medical history of smoking, states he has smoked 1 pack a day since he was 14. Patient is on oral Levaquin, if it is an infectious process oral Levaquin will cover. Due to right lower lobe nodule recommend a repeat follow-up imaging and follow up with pulmonology. 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 Recommend continuing to monitor. Sepsis likely contributing to her pancytopenia. -medical management per primary team -continue to monitor CBC and BMP -continue to monitor for signs of infection Plan of care discussed with Dr. Christopher Thank you for consultation.
[2021-01-12] MEDS ORDERED: levoFLOXacin 750 MG TAB PO SCH (12:00)
--- NOTE | 2021-01-12 12:42 | ECHO ---
HEIGHT: 5 ft 9 in WEIGHT: 225 lb 0 oz DATE OF STUDY: 01/11/[address]: Mikey Escoto NP 2-DIMENSIONAL: YES M.MODE: YES DOPPLER: YES COLOR FLOW: YES TDS: PORTABLE: DEFINITY: BUBBLE STUDY: DIAGNOSIS: RULE OUT ENDOCARDITIS CARDIAC HISTORY: CATHERIZATION: NO SURGERY: NO PROSTHETIC VALVE: NO PACEMAKER: NO MEASUREMENTS (cm) DIASTOLIC (NORMALS) SYSTOLIC (NORMALS) IVSd 1.1 (0.6-1.2) LA Diam 3.4 (1.9-4.0) LVEF 52% LVIDd 4.7 (3.5-5.7) LVIDs 3.4 (2.0-3.5) %FS 27% LVPWd 1.1 (0.6-1.2) Ao Diam 3.0 (2.0-3.7) 2 DIMENSIONAL ASSESSMENT: RIGHT ATRIUM: NORMAL LEFT ATRIUM: NORMAL RIGHT VENTRICLE: NORMAL LEFT VENTRICLE: NORMAL TRICUSPID VALVE: NORMAL MITRAL VALVE: NORMAL PULMONIC VALVE: NORMAL AORTIC VALVE: NORMAL PERICARDIAL EFFUSION: NONE AORTIC ROOT: NORMAL LEFT VENTRICULAR WALL MOTION: NORMAL DOPPLER/COLOR FLOW: MILD TRICUSPID REGURGITATION COMMENTS: MILD TRICUSPID REGURGITATION. NORMAL LEFT VENTRICULAR SIZE AND FUNCTION. NO VEGETATION. NO EFFUSION. TECHNOLOGIST: GREY GOULD
--- NOTE | 2021-01-12 15:56 | P.PN ---
Subjective Date of Service: 01/12/21 Primary Care Provider: None Chief Complaint: Sepsis Patient has no new complain. No fever for several days. Most recent blood culture growing Gram positive Cocci. Multiple blood cultures grew MSSA. Physical Examination - Vital Signs Temperature: 97.2 F Blood Pressure: 138/74 Pulse: 70 Respirations: 16 Pulse Ox (%): 99 - Physical Exam General: Alert, In no apparent distress, Oriented x3 HEENT: Normocephalic, Mucous membr. moist/pink Neck: JVD not distended Respiratory: Clear to auscultation bilaterally, Normal air movement Cardiovascular: No edema, Regular rate/rhythm, Normal S1 S2, No murmurs Capillary refill: <2 Seconds Gastrointestinal: Normal bowel sounds, Soft and benign, Non-distended, No t enderness Musculoskeletal: No swelling, No tenderness Integumentary: No rashes, No cyanosis Neurological: Normal speech, Normal strength at 5/5 x4 extr Assessment And Plan - Plan MSSA bacteremia/sepsis Hypokalemia History of leukemia. Blood cultures obtained peripherally and from PICC line/catheter tip: positive for MSSA Infectious disease is following. Status post vancomycin, Levaquin and cefepime. Antibiotics scaled down to IV cefazolin. Transthoracic echocardiogram: Tricuspid regurgitation. No vegetation found. Repeat blood cultures (01/10): Coagulase positive Staph Tolerating p.o., DC'd IV fluids Given serial blood culture growing MSSA despite antibiotics, endocarditis highly suspected. [facility] contacted via transfer center for transfer ROBERTO. I spoke to trolley collector and hospitalist well accepted patient for transfer. VTE: Lovenox Code: Full
--- NOTE | 2021-01-12 16:05 | P.DS ---
Admission Date: 01/09/21 Discharge Date: 01/12/21 Primary Care Provider: None Disposition: TRANSFER TO [facility] Discharge Condition: FAIR Reason for Admission: Sepsis Brief History of Present Illness: 26-year-old male with history of leukemia now in remission for last 8 months presented to the emergency department for fever. Patient noted to have PICC line to right upper extremity reports that has been in there ever since he was treated with chemotherapy for his leukemia and he never had it removed as he thought he needs to go to [facility] to do so. Patient noted to have no formal dressing to pick line, covered with a T-shirt. Patient reports he has been flushing at home daily. Patient was evaluated in the emergency department labs are significant for white blood cell count 8.3 hemoglobin 11.7 hematocrit 33.7 platelet 115 potassium 3.0 glucose 112 procalcitonin 0.92 lactic acid 0.5 T-max 104.1. CT chest abdomen pelvis with contrast revealed possible left lower lobe pneumonia also suspect central line infection. Blood cultures were obtained including 1 set from PICC line, PICC line was then removed and catheter tip was sent to the lab for culture. Patient admitted for further management. Hospital Course: MSSA bacteremia/sepsis Hypokalemia History of leukemia. Blood cultures obtained peripherally and from PICC line/catheter tip: positive for MSSA Infectious disease salt and managed antibiotics. Status post vancomycin, Levaquin and cefepime. Antibiotics scaled down to IV cefazolin. Transthoracic echocardiogram: Tricuspid regurgitation. No vegetation found. Repeat blood cultures (01/10): Coagulase positive Staph Tolerating p.o. Given serial blood culture growing MSSA despite antibiotics, endocarditis highly suspected. [facility] contacted via transfer center for transfer ROBERTO. I spoke to sider mechanic and hospitalist who have accepted patient for transfer. Vital Signs/Physical Exam: Temp Pulse Resp BP Pulse Ox 97.2 F 70 16 138/74 99 01/12/21 15:58 01/12/21 15:58 01/12/21 15:58 01/12/21 15:58 01/12/21 15:58 General: Alert, In no apparent distress, Oriented x3 HEENT: Mucous membr. moist/pink Neck: JVD not distended Respiratory: Clear to auscultation bilaterally, Normal air movement Cardiovascular: No edema, Regular rate/rhythm, Normal S1 S2, No murmurs Gastrointestinal: Normal bowel sounds, Soft and benign, Non-distended, No tenderness Musculoskeletal: No swelling Integumentary: No cyanosis Neurological: Normal strength at 5/5 x4 extr Laboratory Data at Discharge: WBC 3.10 K/uL (4.3-10.9) L 01/12/21 05:09 Hgb 11.2 g/dL (13.6-17.9) L 01/12/21 05:09 Hct 31.9 % (39.6-49.0) L 01/12/21 05:09 Plt Count 151 K/uL (152-406) L D 01/12/21 05:09 PT 19.4 SECONDS (9.5-12.5) H 01/08/21 21:07 INR 1.68 01/08/21 21:07 APTT 34.5 SECONDS (24.3-36.9) 01/08/21 21:07 Sodium 140 mmol/L (136-145) 01/12/21 05:09 Potassium 3.5 mmol/L (3.5-5.1) 01/12/21 05:09 BUN 12 mg/dL (7-18) 01/12/21 05:09 Creatinine 0.79 mg/dL (0.55-1.3) 01/12/21 05:09 Glucose 90 mg/dL (74-106) 01/12/21 05:09 Magnesium 2.1 mg/dL (1.8-2.4) 01/12/21 05:09 Total Bilirubin 0.4 mg/dL (0.2-1.0) 01/12/21 05:09 AST 20 U/L (15-37) 01/12/21 05:09 ALT 47 U/L (12-78) 01/12/21 05:09 Alkaline Phosphatase 72 U/L (45-117) 01/12/21 05:09 Amylase 51 U/L (25-115) 01/08/21 21:07 Lipase 75 U/L (73-393) 01/08/21 21:07 Home Medications: Enoxaparin Sodium [Lovenox 40 MG INJ*] 40 mg SQ DAILY syr 01/12/21 lisinopriL [Prinivil*] 10 mg PO DAILY tab 01/12/21 Followup: Unknown,U [Primary Care Provider] - Time spent managing pt's care (in minutes): 36
[2021-01-12 16:45] VITALS: TEMP 97.3
[2021-01-12 20:38] VITALS: BP 155/94
== END 2021-01-12 22:10 | disposition short-term general hospital (02) | DRG 314 ==
LOC: ER 20:24 → ERHOLD 01-09 01:41 → 2ND 01-09 03:10
PROVIDERS: ADMIT Hospitalist; ATTEND Internal Medicine
DX: T80.211A Bloodstream infection due to central venous catheter, initial encounter (principal); J18.9 Pneumonia, unspecified organism; A41.01 Sepsis due to Methicillin susceptible Staphylococcus aureus; A41.53 Sepsis due to Serratia; D61.818 Other pancytopenia; C95.91 Leukemia, unspecified, in remission; F17.210 Nicotine dependence, cigarettes, uncomplicated; E87.6 Hypokalemia; R00.0 Tachycardia, unspecified; Z91.018 Allergy to other foods; Z92.21 Personal history of antineoplastic chemotherapy; Z79.899 Other long term (current) drug therapy; Z20.822 Contact with and (suspected) exposure to COVID-19
CPT/HCPCS: 36415; 70450; 71045; 71275; 74177; 80048; 80053; 80076; 80202; 81003; 81015; 82150; 82550; 82553; 82947; 83605; 83690; 83735; 84132; 84145; 84439; 84443; 84484; 85025; 85610; 85730; 86140; 87040; 87070; 87077; 87081; 87186; 87205; 87804; 93005; 93306; 99285; J0690; J0692; J1650; J2405; J3370; J3475; J3480; J7030; J7040; J7050; Q9967; U0003